=== PATIENT | female | born 1985 ===

== ENCOUNTER 2020-10-28 01:31 | Emergency (ER) | payer BC ==
--- NOTE | 2020-10-28 02:07 | EDM.PDOC ---
ED HPI GENERAL MEDICAL PROBLEM - General Chief Complaint: Abdominal Pain Stated Complaint: ABDOMINAL PAIN Time Seen by Provider: 10/28/20 01:49 Source of Information: Reports: Patient, Significant Other (Boyfriend) History Limitations: Reports: No Limitations - History of Present Illness INITIAL COMMENTS - FREE TEXT/NARRATIVE: Ms. Huizar is a very pleasant 35-year-old woman who now presents to the ED with generalized abdominal pain that she states began around 07:30 yesterday morning, 10/27/2020. She is unable to describe the character of the pain, but states that if she sits up, rolls over, or walks, it becomes sharp. She has had intermittent nausea all day yesterday, and had one episode of emesis at 07:45 yesterday morning. No recent fever, constipation, diarrhea, or urinary symptoms. No prior similar symptoms. The patient states that she took 400 mg of ibuprofen yesterday morning, then another tablet later in the day, then 2 tablets yesterday evening. The patient states that she started her menstrual period this past , 10/26/2020, right on time. Here in the ED, the patient is found to be hemodynamically stable, afebrile, saturating 100% on room air. Prior to yesterday morning, the patient denies having a recent fever, chills, sore throat, ear pain, nasal or sinus congestion, cough, dyspnea, chest pain, palpitations, nausea, vomiting, constipation, diarrhea, abdominal pain, urinary symptoms, recent weight gain or weight loss, recent bloody bowel movements or black bowel movements, recent joint aches, headaches, or rashes. The patient does not have a PCP. Her woman's health provider is Isabel Saenz NP. She has already received an influenza vaccine this season. Abdomen Pain Score (Numeric/FACES): 7 - Related Data Allergies Allergy/AdvReac Type Severity Reaction Status Date / Time No Known Allergies Allergy Verified 10/28/20 01:46 Home Meds: Home Meds Acetaminophen/HYDROcodone [Walker 325-5 MG] 1 - 2 tab PO Q6H PRN #24 tablet 10/28/20 [Rx] Ondansetron [Zofran ODT] 1 tab PO Q8H PRN #10 tab.dis 01/30/21 [Rx] Past Medical History : 1 Para: 1 - Past Surgical History HEENT Surgical History: Reports: Myringotomy w Tube(s) (bilateral), Oral Surgery (dental extractions), Tonsillectomy Musculoskeletal Surgical History: Reports: Arthroscopic Knee (left ACL repair) Social & Family History - Tobacco Use Tobacco Use Status *Q: Never Tobacco User Second Hand Smoke Exposure: No - Caffeine Use Caffeine Use: Reports: Coffee, Soda - Alcohol Use Alcohol Use History: Yes Alcohol Use Frequency: Socially - Recreational Drug Use Recreational Drug Use: No - Living Situation & Occupation Living situation: Reports: Single, with Family (Son) Occupation: Employed (Medical Laboratory Technologist) ED ROS GENERAL - Review of Systems Review Of Systems: Comprehensive ROS is negative, except as noted in HPI. ED EXAM, GI/ABD - Physical Exam Exam: See Below Exam Limited By: No Limitations General Appearance: Alert, Mild Distress (appears uncomfortable), Thin Eyes: Bilateral: Normal Appearance, EOMI Ears: Normal External Exam, Hearing Grossly Normal Nose: Normal Inspection Throat/Mouth: Normal Inspection, Normal Lips, Normal Voice, No Airway Compromise Head: Atraumatic, Normocephalic Neck: Normal Inspection, Full Range of Motion Respiratory/Chest: No Respiratory Distress, Lungs Clear, Normal Breath Sounds, No Accessory Muscle Use Cardiovascular: Normal Peripheral Pulses, Regular Rate, Rhythm, No Edema, No Gallop, No JVD, No Murmur, No Rub GI/Abdominal Exam: Normal Bowel Sounds, Soft, No Organomegaly, No Distention, No Abnormal Bruit, No Mass, Rebound (to the RLQ), Tender (across the entire abdomen, but most tender in the right lower quadrant. Obturator sign absent. Psoas sign absent. Heel drop sign present.) Back Exam: Normal Inspection, Full Range of Motion. No: CVA Tenderness (L), CVA Tenderness (R) Extremities: Normal Inspection, Normal Range of Motion, No Pedal Edema, Normal Capillary Refill Neurological: Alert, Oriented, Normal Cognition, No Motor/Sensory Deficits Psychiatric: Normal Affect Skin Exam: Warm, Dry, Intact, Normal Color, No Rash Course - Vital Signs Last Recorded V/S: Last Vital Signs Temp 36.8 C 10/28/20 01:42 Pulse 89 10/28/20 01:42 Resp 18 10/28/20 01:42 BP 113/71 10/28/20 01:42 Pulse Ox 100 10/28/20 01:42 - Orders/Labs/Meds Orders: Active Orders 24 hr Category Date Time Status Abdomen Pelvis w Cont [CT] Stat Exams 10/28/20 02:01 Taken Sodium Chloride 0.9% [Normal Saline] 1,000 ml Med 10/28/20 02:15 Active IV ASDIRECTED Sodium Chloride 0.9% [Normal Saline] 100 ml Med 10/28/20 03:45 Active IV ASDIRECTED Medication Orders Sodium Chloride (Normal Saline) 1,000 mls @ 150 mls/hr IV ASDIRECTED ALFIE Last Admin: 10/28/20 02:26 Dose: 150 mls/hr Documented by: BAYRON Sodium Chloride (Normal Saline) 100 mls @ 60 drops/min IV ASDIRECTED ALFIE Last Admin: 10/28/20 03:39 Dose: 60 drops/min Documented by: ENRICO Labs: Laboratory Tests 10/28/20 10/28/20 10/28/20 Range/Units 02:17 02:17 02:17 WBC 15.85 H (3.98-10.04) K/mm3 RBC 4.32 (3.98-5.22) M/mm3 Hgb 12.8 (11.2-15.7) gm/dl Hct 38.8 (34.1-44.9) % MCV 89.8 (79.4-94.8) fl MCH 29.6 (25.6-32.2) pg MCHC 33.0 (32.2-35.5) g/dl RDW Std Deviation 43.2 (36.4-46.3) fL Plt Count 236 (182-369) K/mm3 MPV 11.8 (9.4-12.3) fl Neutrophils % (Manual) 80 H (40-60) % Band Neutrophils % 13 H (0-10) % Lymphocytes % (Manual) 6 L (20-40) % Atypical Lymphs % 0 % Monocytes % (Manual) 0 L (2-10) % Eosinophils % (Manual) 0 L (0.7-5.8) % Basophils % (Manual) 1 (0.1-1.2) Toxic Granulation Moderate Platelet Estimate Adequate Plt Morphology Comment Normal RBC Morph Comment Normal Sodium 139 (136-145) mEq/L Potassium 3.5 (3.5-5.1) mEq/L Chloride 102 (98-107) mEq/L Carbon Dioxide 25 (21-32) mEq/L Anion Gap 15.5 H (5-15) BUN 9 (7-18) mg/dL Creatinine 0.8 (0.55-1.02) mg/dL Est Cr Clr Drug Dosing 84.76 mL/min Estimated GFR (MDRD) > 60 (>60) mL/min BUN/Creatinine Ratio 11.3 L (14-18) Glucose 121 H (74-106) mg/dL Calcium 8.7 (8.5-10.1) mg/dL Magnesium 1.7 L (1.8-2.4) mg/dl Total Bilirubin 1.0 (0.2-1.0) mg/dL AST 15 (15-37) U/L ALT 15 (14-59) U/L Alkaline Phosphatase 44 L (46-116) U/L Total Protein 6.6 (6.4-8.2) g/dl Albumin 3.5 (3.4-5.0) g/dl Globulin 3.1 gm/dL Albumin/Globulin Ratio 1.1 (1-2) Lipase 71 L (73-393) U/L HCG, Quant 1.0 mIU/mL Urine Color (Yellow) Urine Appearance (Clear) Urine pH (5.0-8.0) Ur Specific Hensel (1.005-1.030) Urine Protein (Negative) Urine Glucose (UA) (Negative) Urine Ketones (Negative) Urine Occult Blood (Negative) Urine Nitrite (Negative) Urine Bilirubin (Negative) Urine Urobilinogen (0.2-1.0) Ur Leukocyte Esterase (Negative) Urine RBC (0-5) /hpf Urine WBC (0-5) /hpf Ur Squamous Epith Cells (0-5) /hpf Urine Bacteria (FEW) /hpf Urine Mucus (FEW) /hpf 10/28/20 Range/Units 03:43 WBC (3.98-10.04) K/mm3 RBC (3.98-5.22) M/mm3 Hgb (11.2-15.7) gm/dl Hct (34.1-44.9) % MCV (79.4-94.8) fl MCH (25.6-32.2) pg MCHC (32.2-35.5) g/dl RDW Std Deviation (36.4-46.3) fL Plt Count (182-369) K/mm3 MPV (9.4-12.3) fl Neutrophils % (Manual) (40-60) % Band Neutrophils % (0-10) % Lymphocytes % (Manual) (20-40) % Atypical Lymphs % % Monocytes % (Manual) (2-10) % Eosinophils % (Manual) (0.7-5.8) % Basophils % (Manual) (0.1-1.2) Toxic Granulation Platelet Estimate Plt Morphology Comment RBC Morph Comment Sodium (136-145) mEq/L Potassium (3.5-5.1) mEq/L Chloride (98-107) mEq/L Carbon Dioxide (21-32) mEq/L Anion Gap (5-15) BUN (7-18) mg/dL Creatinine (0.55-1.02) mg/dL Est Cr Clr Drug Dosing mL/min Estimated GFR (MDRD) (>60) mL/min BUN/Creatinine Ratio (14-18) Glucose (74-106) mg/dL Calcium (8.5-10.1) mg/dL Magnesium (1.8-2.4) mg/dl Total Bilirubin (0.2-1.0) mg/dL AST (15-37) U/L ALT (14-59) U/L Alkaline Phosphatase (46-116) U/L Total Protein (6.4-8.2) g/dl Albumin (3.4-5.0) g/dl Globulin gm/dL Albumin/Globulin Ratio (1-2) Lipase (73-393) U/L HCG, Quant mIU/mL Urine Color Fouzia H (Yellow) Urine Appearance Clear (Clear) Urine pH 6.0 (5.0-8.0) Ur Specific Hensel 1.015 (1.005-1.030) Urine Protein 1+ H (Negative) Urine Glucose (UA) Negative (Negative) Urine Ketones 1+ H (Negative) Urine Occult Blood Trace-intact H (Negative) Urine Nitrite Negative (Negative) Urine Bilirubin Negative (Negative) Urine Urobilinogen 0.2 (0.2-1.0) Ur Leukocyte Esterase Negative (Negative) Urine RBC 0-5 (0-5) /hpf Urine WBC 0-5 (0-5) /hpf Ur Squamous Epith Cells 0-5 (0-5) /hpf Urine Bacteria Few (FEW) /hpf Urine Mucus Moderate H (FEW) /hpf Meds: Medications Generic Name Dose Route Start Last Admin Trade Name Freq PRN Reason Stop Dose Admin Sodium Chloride 1,000 mls @ 150 mls/hr 10/28/20 02:15 10/28/20 02:26 Normal Saline IV 150 mls/hr ASDIRECTED ALFIE Administration Sodium Chloride 100 mls @ 60 drops/min 10/28/20 03:45 10/28/20 03:39 Normal Saline IV 60 drops/min ASDIRECTED ALFIE Administration Discontinued Medications Generic Name Dose Route Start Last Admin Trade Name Freq PRN Reason Stop Dose Admin Hydromorphone HCl 0.5 mg 10/28/20 02:09 10/28/20 02:27 Dilaudid IVPUSH 10/28/20 02:10 0.5 mg ONETIME ONE Administration Hydromorphone HCl 0.5 mg 10/28/20 05:11 10/28/20 05:20 Dilaudid IVPUSH 10/28/20 05:12 0.5 mg ONETIME ONE Administration Iopamidol 100 ml 10/28/20 03:39 10/28/20 03:39 Isovue-300 (61%) IVPUSH 10/28/20 03:40 100 ml ONETIME ONE Administration Ondansetron HCl 4 mg 10/28/20 02:09 10/28/20 02:27 Zofran IVPUSH 10/28/20 02:10 4 mg ONETIME ONE Administration - Re-Assessments/Exams Free Text/Narrative Re-Assessment/Exam: 10/28/20 02:02 As above, the patient developed generalized abdominal pain yesterday morning, along with intermittent nausea and one episode of emesis. Her pain is made worse if she sits up, walks, or rolls over. No recent fever, constipation, diarrhea, or urinary symptoms. She is currently on her menstrual period. On examination, she has tenderness across her entire abdomen, but is most tender to the right lower quadrant, where she also has some rebound tenderness. No flank pain or CVA tenderness. 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 In the meantime, the patient will be given IV fluid. She declined an offer to receive both pain medication and anti-nausea medicine at this time. 10/28/20 02:09 Notified by Elena FLORES that the patient changed her mind, and would now like something for pain and nausea. I will order IV Dilaudid and IV Zofran. 10/28/20 04:50 The patient's CBC is remarkable for a WBC count elevated at 15.85, with 13% bandemia. The remainder of her CBC is unremarkable. Her CMP is remarkable for an anion gap slightly elevated at 15.5, but with a bicarbonate normal at 25. She has mild hyperglycemia of 121, with the remainder of her CMP being unremarkable. Her magnesium level is slightly depressed at 1.7. Her lipase level is within normal limits at 71. Her quantitative hCG is 1.0. Her urinalysis is unremarkable. CT of the abdomen and pelvis with IV contrast (the patient was not able to tolerate oral) is read by [facility] as "Large low-density abdominal pelvic free fluid. 5 cm left adnexal cystic lesion. Considered ruptured ovarian cyst. Ectopic is felt unlikely but not totally excluded given a reported beta HCG level of 1. Serial HCG level should be considered. OBGYN consultation recommended. Based on the CT report, I have ordered a swab for the SARS-CoV-2 virus. 10/28/20 05:[address] Leon at 04:54. He is currently in the hospital and was able to review the CT scan. He feels that the leukocytosis with bandemia is likely a stress reaction, and he is not recommending antibiotics at this time. He will come by the ED to evaluate the patient, but mentioned that in most cases patients are able to go home, and that he generally does not recommend surgical drainage of the fluid, since that procedure often does not relieve the patient of pain, and prevents the patient from "auto transfusing" the blood in the abdomen. The above was discussed with the patient and her boyfriend. She declined an offer for additional pain or anti-nausea medicine at this time. 10/28/20 05:10 Notified that the patient has changed her mind, and would like some additional pain medication. 10/28/20 05:35 Dr. Leon is here to evaluate the patient. 10/28/20 06:11 Dr. Leon reported that he evaluated the patient and offered to place her into observation, however, she would prefer to go home. I will therefore prescribe for her some Walker and Zofran. If her pain is inadequately controlled with Walker, Dr. Leon offered to directly admit her, so that she would not have to come to the ED again. Since she is not being admitted, I have canceled the order for the swab for the SARS-CoV-2 virus. Departure - Departure Time of Disposition: 06:12 Disposition: Home, Self-Care 01 Condition: Good Clinical Impression: Ruptured cyst of left ovary - Discharge Information *PRESCRIPTION DRUG MONITORING PROGRAM REVIEWED*: Not Applicable *COPY OF PRESCRIPTION DRUG MONITORING REPORT IN PATIENT VICTORINO: Not Applicable Prescriptions: Acetaminophen/HYDROcodone [Walker 325-5 MG] 1 - 2 tab PO Q6H PRN #24 tablet PRN Reason: Pain (Severe 7-10) Ondansetron [Zofran ODT] 1 tab PO Q8H PRN #10 tab.dis PRN Reason: Nausea/Vomiting Referrals: PCP,Lokesh [Primary Care Provider] - Isabel Saenz NP [Nurse Practitioner] - Bhupendra Leon MD [Physician] - Forms: ED Department Discharge Additional Instructions: You were seen in the emergency room after developing generalized abdominal pain yesterday morning, 10/27/2019, along with nausea and a single episode of vomiting. Work-up in the ER included several blood tests, urinalysis, and a CT of your abdomen and pelvis with IV contrast. Your work-up found that you have a ruptured left ovarian cyst, which has spilled blood and fluid into your abdomen, which is causing your pain. You were evaluated by the Bowling Alley Attendant Dr. Bhupendra Leon in the ER. You have elected to go home. We recommend that you take [id number] ibuprofen, 3 tablets (600 mg) up to every 8 hours, with food, [id number] initially, then as needed for discomfort. You may also take 1 to 2 tablets of the prescription opioid Walker up to every 6 hours, as needed for pain not relieved by ibuprofen. If you take Walker, do not drive for 12 hours afterwards. Walker may cause constipation, so consider taking a stool softener. You may dissolve 1 tablet of the antinausea medicine Zofran on your tongue up to every 8 hours, as needed for nausea/vomiting. If the above medicines do not adequately control your symptoms, please contact Dr. Leon to arrange for direct admission to the hospital. If any other problems, please do not hesitate to return to the ER. Sepsis Event Note (ED) - Evaluation Sepsis Screening Result: No Definite Risk - Focused Exam Vital Signs: Vital Signs Temp Pulse Resp BP Pulse Ox 10/28/20 01:42 36.8 C 89 18 113/71 100 - My Orders Last 24 Hours: My Active Orders 10/28/20 02:01 Abdomen Pelvis w Cont [CT] Stat 10/28/20 02:15 Sodium Chloride 0.9% [Normal Saline] 1,000 ml IV ASDIRECTED 10/28/20 03:45 Sodium Chloride 0.9% [Normal Saline] 100 ml IV ASDIRECTED - Assessment/Plan Last 24 Hours: My Active Orders 10/28/20 02:01 Abdomen Pelvis w Cont [CT] Stat 10/28/20 02:15 Sodium Chloride 0.9% [Normal Saline] 1,000 ml IV ASDIRECTED 10/28/20 03:45 Sodium Chloride 0.9% [Normal Saline] 100 ml IV ASDIRECTED
[2020-10-28] MEDS ORDERED: HYDROmorphone 0.5 MG/0.5 ML Syringe IVPUSH ONE ×2 (02:09→05:11)
[2020-10-28] MEDS ORDERED: Ondansetron 4 MG/2 ML SDV IVPUSH ONE (02:09)
[2020-10-28] MEDS ORDERED: Sodium Chloride 0.9% 1,000 ML IV SCH (02:15)
[2020-10-28] MEDS ORDERED: Iopamidol 612 MG/ML 100 ML Bottle IVPUSH ONE (03:39)
[2020-10-28] MEDS ORDERED: Sodium Chloride 0.9% 100 ML IV SCH (03:45)
--- NOTE | 2020-10-28 10:50 | CT ---
CT abdomen and pelvis Technique: Multiple axial sections were obtained from above the dome of the diaphragm inferiorly through the pubic symphysis. Intravenous contrast was utilized. No oral contrast was given. Delayed images were also obtained through the abdomen and pelvis. Comparison: No prior abdominal imaging is available. Findings: Visualized lung bases show nothing acute. Liver contains no focal abnormality. Spleen appears within normal limits. Adrenal glands show no nodule. Pancreas shows no discrete abnormality. Small nonobstructing stone is noted within the left kidney measuring about 5 mm. Delayed images show contrast within the proximal left ureter and within the pelvis on the right side. No bladder opacification is seen. This suggests the possibility of dehydration. There is fluid being seen around the liver and spleen and extending into the pelvis. Pelvis shows a 4.5 x 5.0 cm cyst which may be leaking and causing the etiology of the fluid. Abdominal aorta shows no aneurysm. No retroperitoneal adenopathy is seen. Appendix is not visualized. No additional pelvic abnormality is appreciated. Bone window settings were reviewed. Spondylitic defects are noted at L5-S1. No acute osseous finding is appreciated. Impression: 1. Increased fluid around the liver and spleen extending into the pelvis. 4.5-5 cm cyst within the left pelvis most likely ovarian. There is a possibility of leakage of this cyst. Please correlate with patient's serum hCG to rule out ectopic. 2. Nonobstructing stone within the left kidney. 3. Other nonacute findings as noted above. 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
== END 2020-10-28 06:30 | disposition home or self-care (01) ==
LOC: JD.ED 01:31
DX: N83.202 Unspecified ovarian cyst, left side (principal)
CPT/HCPCS: 36415; 74177; 80053; 81001; 83690; 83735; 84702; 85007; 85027; 96374; 96375; 96376; 99284; J1170; J2405; J7030; Q9967